=== PATIENT | male | born 1975 | race Two or more races ===

== ENCOUNTER 2019-07-06 15:32 | Emergency (ER) | payer OTHER ==
[~2019-07-06] VITALS: Ht 175.3 cm; Wt 81.7 kg
--- OUTSIDE RECORDS SUMMARY | 2019-07-06 15:36 | XMS ---
PreManage Notification: JUDY CHURCHILL Security [employer] Analyst Events No recent Security Events currently on file CRITERIA MET - [facility] [place] - Has Care Guidelines CARE PROVIDERS There are no care providers on record at this time. Nikita has no Care Guidelines for this patient. Care History Medical/Surgical 03/10/2019 [facility] - RECEIVED ED CASE MANAGEMENT CONSULT- HELP PATIENT WITH PCP SET UP. - PATIENT CONTACT NUMBER IS NOT PATIENT CONTACT NUMBER PER INDIVIDUAL WHO ANSWERED THE PHONE. - CHW SENT NO PCP LETTER TO PATIENT LISTED ADDRESS. - WRONG PHONE NUMBER Please update patient phone number when seen. CHW needs to contact patient E.D. VISIT COUNT (12 MO.) 2 [facility] TOTAL 2 NOTE: Visits indicate total known visits. ED/UCC VISIT TRACKING (12 MO.) 07/06/2019 15:33 [facility] [place] TYPE: Emergency COMPLAINT: - CHEST PAIN, SOB 03/01/2019 08:36 [facility] [place] TYPE: Emergency COMPLAINT: - DIZZINESS, BLOOD PRESSURE PROBLEM DIAGNOSES: - Allergy status to penicillin - Personal history of nicotine dependence - Syncope and collapse - Allergy status to sulfonamides status INPATIENT VISIT TRACKING (12 MO.) No inpatient visits to display in this time frame [email or web address]
--- NOTE | 2019-07-07 19:41 | EKG ---
[facility] [address] [place] [address] Signed Normal sinus rhythm Nonspecific T wave abnormality Abnormal ECG When compared with ECG of 01-MAR-2019 08:45, No significant change was found Confirmed by TRACIE MUNROE DO ([id number]) on 07/07/2019 7:40:48 PM Electronically Signed By: TRACIE MUNROE DO 07/07/191940 PATIENT NAME: RYLEY CHURCHILLMika MEZA Electrocardiogram DATE OF : 77 PHYSICIAN: TRACIE MUNROE DO REPORT #: [id number] REPORT IS CONFIDENTIAL AND NOT TO BE RELEASED WITHOUT AUTHORIZATION
== END 2019-07-06 18:15 | disposition home or self-care (01) ==
LOC: ED 15:32
DX: R07.89 Other chest pain (principal); R06.4 Hyperventilation; Z88.0 Allergy status to penicillin; Z88.2 Allergy status to sulfonamides
CPT/HCPCS: 36415; 80053; 84484; 85025; 93005; 93010; 99285-25

== ENCOUNTER 2020-08-25 12:12 | Emergency (ER) | payer OTHER ==
[~2020-08-25] VITALS: Ht 175.3 cm; Wt 81.6 kg
--- OUTSIDE RECORDS SUMMARY | 2020-08-25 12:14 | XMS ---
PreManage Notification: JUDY CHURCHILL Security [employer] Header Events No recent Security Events currently on file CRITERIA MET - [facility] - Has Care Guidelines CARE PROVIDERS CAMI HERNANDEZ Nurse Practitioner: Family 07/07/2019-Current PHONE: [phone] Nikita has no Care Guidelines for this patient. Care History Medical/Surgical 07/07/2019 [facility] - Patient is currently established with [facility]. If patient is seen in the ED during business hours. Please contact CHWs at [facility]. Care Recommendation: This patient has had 5 or more Emergency Department visits in the last 12 months.\T\nbsp; Patient requires education on the scope and purpose of the ED as an acute care provider not a Primary Care Provider and should not be utilized for chronic conditions.\T\nbsp; These are guidelines and the provider should exercise clinical judgment when providing care. 03/10/2019 [facility] - RECEIVED ED CASE MANAGEMENT CONSULT- HELP PATIENT WITH PCP SET UP. - PATIENT CONTACT NUMBER IS NOT PATIENT CONTACT NUMBER PER INDIVIDUAL WHO ANSWERED THE PHONE. - CHW SENT NO PCP LETTER TO PATIENT LISTED ADDRESS. - WRONG PHONE NUMBER Please update patient phone number when seen. CHW needs to contact patient E.D. VISIT COUNT (12 MO.) 1 [facility] TOTAL 1 NOTE: Visits indicate total known visits. ED/UCC VISIT TRACKING (12 MO.) 08/25/2020 12:12 [facility] [place] TYPE: Emergency COMPLAINT: - L INDEX FINGER LACERATION INPATIENT VISIT TRACKING (12 MO.) No inpatient visits to display in this time frame [email or web address]
== END 2020-08-25 13:34 | disposition home or self-care (01) ==
LOC: ED 12:12
DX: S61.211A Laceration without foreign body of left index finger without damage to nail, initial encounter (principal); W26.8XXA Contact with other sharp object(s), not elsewhere classified, initial encounter; Z88.0 Allergy status to penicillin; Z88.2 Allergy status to sulfonamides
CPT/HCPCS: 12001; 73140; 90471; 90715; 99283-25